=== PATIENT | female | born 1985 | race Two or more races ===

== ENCOUNTER 2016-12-06 15:54 | Emergency (ER) | payer MEDICAID ==
[~2016-12-06] VITALS: Ht 152.4 cm; Wt 54.4 kg
[2016-12-06] MEDS ORDERED: Bicillin LA 1.2 Million Units Syr IM ONE (16:45)
[2016-12-06] MEDS ORDERED: Dexamethasone 4mg/ml vial IM ONE (16:45)
[2016-12-06] MEDS ORDERED: Ketorolac 30mg Inj IM ONE (17:45)
[2016-12-06] MEDS ORDERED: AMOXICILLIN500 MG ORAL (17:54)
[2016-12-06] MEDS ORDERED: IBUPROFEN600 MG ORAL (17:54)
[2016-12-06 18:37] VITALS: BP 125/71
--- NOTE | 2016-12-07 14:56 | Emergency Room Report ---
History of Present Illness General Chief Complaint: Sore Throat Present Illness HPI The patient is a 31-year-old female presenting with sore throat which began 3 days prior. Patient describes the pain as an 8/10 dull ache it is worse with swallowing. The patient states that it has become difficult to eat due to the pain. The patient also admits to subjective fevers. Pain does not radiate. The patient denies any other symptoms including nausea, vomiting, headache, rash , shortness of breath, facial pain, dental pain Allergies: Coded Allergies: No Known Allergies (Unverified , 12/06/16) Patient History Past Medical History: see triage record Pertinent Family History: none Reviewed Nursing Documentation: PMH: Agreed, PSxH: Agreed Nursing Documentation-PMH Past Medical History: No Stated History Review of Systems All Other Systems: negative except mentioned in HPI Physical Exam Vital Signs Date Time Temp Pulse Resp B/P Pulse Ox O2 Delivery O2 Flow Rate FiO2 12/06/16 16:11 98.4 107 20 121/77 99 Room Air Sp02 EP Interpretation: reviewed, normal General Appearance: no apparent distress, alert, GCS 15, non-toxic Head: normocephalic, atraumatic Eyes: bilateral eye PERRL, bilateral eye normal inspection ENT: hearing grossly normal, TMs + canals normal, uvula midline, tonsillar swelling, pharyngeal erythema, tonsillar exudate Neck: full range of motion, supple/symm/no masses Respiratory: chest non-tender, lungs clear, normal breath sounds, no wheezing, speaking full sentences Cardiovascular #1: regular rate, rhythm, no edema Musculoskeletal: back normal, gait/station normal, normal range of motion, non- tender Neurologic: alert, oriented x3, responsive, motor strength/tone normal, sensory intact, speech normal Psychiatric: judgement/insight normal, memory normal, mood/affect normal, no suicidal/homicidal ideation Skin: normal color, no rash, warm/dry, well hydrated Lymphatic: adenopathy Medical Decision Making PA Attestation Dr. David is my supervising physician. Patient management was discussed with my supervising physician Diagnostic Impression: Primary Impression: Pharyngitis, acute ER Course The patient is a 31-year-old female presenting with sore throat which began 3 days prior Differential diagnosis include but not limited to pharyngitis, sinusitis, AOM, bronchitis, PNA Physical exam: Vitals within normal limits. Afebrile. No apparent distress HEENT exam: There is bilateral tonsillar edema, erythema, and exudate. Uvula midline. Moist mucous membranes. There is bilateral cervical lymphadenopathy. Lungs are clear to auscultation bilaterally Skin is warm and dry. No rash The patient is given Toradol, dexamethasone, and PCN IM and is feeling better. The patient will be discharged home with a prescription for amoxicillin and is given ER precautions. Patient will followup with primary care Last Vital Signs Date Time Temp Pulse Resp B/P Pulse Ox O2 Delivery O2 Flow Rate FiO2 12/06/16 18:37 99 20 125/71 99 Room Air 12/06/16 18:35 98.4 Status: improved Disposition: HOME, SELF-CARE Condition: Improved Scripts Ibuprofen* (MOTRIN*) 600 Mg Tablet 600 MG ORAL Q8H Y for For Pain, #30 TAB 0 Refills Prov: LIZ JADE.[email or web address] 12/06/16 Amoxicillin* (AMOXIL*) 500 Mg Capsule 500 MG ORAL BID, #20 CAP Prov: LIZ JADE 12/06/16 Patient Instructions: Pharyngitis Additional Instructions: I discussed my findings with the patient. All questions and concerns have been answered. Treatment and medication compliance have been addressed. I advised the patient that they need to follow up with PMD in 3-5 days. Return to ED if pain remains or worsens, cough worsens or remains, you notice blood in your sputum, you notice wheezing, you experience a fever, or if needed for any reason. Patient verbalized understanding of discharge instructions. LIZ JADE Dec 07, 2016 14:56
== END 2016-12-06 18:50 | disposition home or self-care (01) ==
LOC: EMR 17:00
DX: J02.9 Acute pharyngitis, unspecified (principal)
CPT/HCPCS: 99284; J0561; J1100; J1885